=== PATIENT | female | born 1980 | race Caucasian/White ===

== ENCOUNTER 2017-04-21 10:41 | Inpatient (IN) | payer BC ==
[~2017-04-21] VITALS: Ht 172.7 cm; Wt 87.7 kg
[2017-05-07] MEDS ORDERED: PRENATAL (17:11)
[2017-05-28] VITALS (18 sets, daily range): BP systolic 96–130; BP diastolic 52–77; PULSE 80–115; TEMP 98.4–99
[2017-05-28] MEDS ORDERED: GARLIC100 MG PO (12:06)
[2017-05-28] MEDS ORDERED: OSCAL 500 TAB500 MG (12:07)
[2017-05-28] MEDS ORDERED: OMEGA-3 1000 MG1 CAP PO (12:07)
[2017-05-28 12:11] LABS: BASO % 0.2 % (0.0-2.0); EOS % 0.1 % (0-4.0); GRAN # 12.6 (1.4-6.5); GRAN % 81.5 % (42.2-75.2); HEMATOCRIT 40.2 % (37.0-47.0); HEMOGLOBIN 13.6 g/dl (12.5-16.0); LYMPH # 1.5 (1.2-3.4); LYMPH % 9.5 % (20.0-51.0); MEAN CELL VOLUME 91 fl (80.0-100.0); MEAN CORPUSCULAR HEMOGLOBIN 31 pg (27.0-31.0); MEAN CORPUSCULAR HGB CONC 34 g/dl (33.0-37.0); MEAN PLATELET VOLUME 11.2 fl (7.4-10.4); MONO # 1.3 (0.1-0.6); MONO % 8.2 % (1.7-9.3); PLATELET COUNT 179 K/mm3 (130-400); RED BLOOD COUNT 4.41 M/mm3 (4.10-5.30); WHITE BLOOD COUNT 15.4 K/mm3 (4.8-10.8)
[2017-05-29 03:00] VITALS: BP 125/58; PULSE 90; TEMP 98.6
[2017-05-29] MEDS ORDERED: IBU600 MG PO (07:11)
[2017-05-29 07:14] LABS: HEMATOCRIT 31.9 % (37.0-47.0); HEMOGLOBIN 10.8 g/dl (12.5-16.0)
[2017-05-29 08:11] VITALS: BP 105/56; PULSE 100; TEMP 97.6
[2017-05-29 15:00] VITALS: BP 90/66; PULSE 90; TEMP 97.6
[2017-05-29 16:15] VITALS: BP 118/73; PULSE 98; TEMP 98
[2017-05-29 20:30] VITALS: BP 107/68; PULSE 103; TEMP 98.3
[2017-05-30 08:00] VITALS: BP 102/63; PULSE 90; TEMP 98.3
== END 2017-05-30 15:30 | disposition home or self-care (01) | DRG 775 ==
LOC: LDR 05-28 11:26 → OB 05-28 11:32 → LDR 05-28 11:32 → OB 05-28 21:15 → LDR 06-02 10:41
PROVIDERS: Obstetrics & Gynecology
PROC: 10E0XZZ Delivery of Products of Conception, External Approach (ICD-10-PCS; principal; 2017-05-28)
PROC: 0KQM0ZZ Repair Perineum Muscle, Open Approach (ICD-10-PCS; 2017-05-28)
DX: O70.1 Second degree perineal laceration during delivery (principal); Z37.0 Single live birth; Z3A.39 39 weeks gestation of pregnancy
CPT/HCPCS: J2590

== ENCOUNTER 2017-05-07 16:45 | Outpatient (CLI) | payer BC ==
[~2017-05-07] VITALS: Ht 172.7 cm; Wt 83.9 kg
[2017-05-07] MEDS ORDERED: PRENATAL (17:11)
== END 2017-05-07 19:00 | disposition home or self-care (01) ==
LOC: LDRO 16:45 → LDR 16:45 → LDRO 17:00 → LDR 17:00 → EDSTATUS 18:41 → LDR 19:00
DX: O76 Abnormality in fetal heart rate and rhythm complicating labor and delivery (principal); Z3A.36 36 weeks gestation of pregnancy
CPT/HCPCS: OP

== ENCOUNTER 2017-06-01 11:56 | Emergency (ER) | payer BC ==
[~2017-06-01] VITALS: Ht 172.7 cm; Wt 80.0 kg
[~2017-06-01 11:56] MED LIST: GARLIC100 MG PO; IBU600 MG PO; OMEGA-3 1000 MG1 CAP PO; OSCAL 500 TAB500 MG; PRENATAL
[2017-06-01 12:05] VITALS: TEMP 99
[2017-06-01 12:58] LABS: BASO % 0.3 % (0.0-2.0); EOS # 0.2 (0.0-0.7); EOS % 1.6 % (0-4.0); GRAN # 7.8 (1.4-6.5); GRAN % 74.3 % (42.2-75.2); HEMATOCRIT 35.7 % (37.0-47.0); HEMOGLOBIN 11.8 g/dl (12.5-16.0); LYMPH # 1.7 (1.2-3.4); LYMPH % 15.9 % (20.0-51.0); MEAN CELL VOLUME 93 fl (80.0-100.0); MEAN CORPUSCULAR HEMOGLOBIN 31 pg (27.0-31.0); MEAN CORPUSCULAR HGB CONC 33 g/dl (33.0-37.0); MEAN PLATELET VOLUME 10.5 fl (7.4-10.4); MONO # 0.7 (0.1-0.6); MONO % 6.9 % (1.7-9.3); PLATELET COUNT 224 K/mm3 (130-400); RED BLOOD COUNT 3.85 M/mm3 (4.10-5.30); WHITE BLOOD COUNT 10.5 K/mm3 (4.8-10.8)
[2017-06-01 13:51] VITALS: BP 121/81; PULSE 95
[2017-06-01 14:06] LABS: COLLECTION METHOD CLEAN CATCH
[2017-06-01 14:14] LABS: MUCOUS Present /lpf; PH 7 (5-8); SQUAMOUS EPITHELIAL 0-2 /hpf; URINE APPEARANCE Clear; URINE BACTERIA Rare /hpf; URINE BILIRUBIN Negative (NEGATIVE); URINE BLOOD 2+ (NEGATIVE); URINE COLOR Straw; URINE GLUCOSE Negative (NEGATIVE); URINE KETONE Negative (NEGATIVE); URINE LEUKOCYTE ESTERASE 2+ (NEGATIVE); URINE PROTEIN(semi-quant) Negative (NEGATIVE); URINE UROBILINOGEN Negative (NEGATIVE)
[2017-06-01] MEDS ORDERED: CEFTIN500 MG PO (14:51)
== END 2017-06-01 15:05 | disposition home or self-care (01) ==
LOC: COL.ER 11:56
PROVIDERS: Emergency Medicine
DX: M79.661 Pain in right lower leg (principal); X58.XXXA Exposure to other specified factors, initial encounter

== ENCOUNTER → 2017-06-11 | Outpatient (CLI) | payer BC ==
[~2017-06-11] MED LIST changes: +CEFTIN500 MG PO
== END ==
LOC: LAC 13:30
DX: Z39.1 Encounter for care and examination of lactating mother (principal); Z71.89 Other specified counseling

== ENCOUNTER → 2017-06-17 | Outpatient (CLI) | payer BC | LOC: LAC 10:57 | DX: Z39.1 Encounter for care and examination of lactating mother (principal); Z71.89 Other specified counseling ==

== ENCOUNTER → 2017-06-19 | Outpatient (CLI) | payer BC | LOC: LAC 11:00 | DX: Z39.1 Encounter for care and examination of lactating mother (principal); Z71.89 Other specified counseling ==

== ENCOUNTER → 2017-06-24 | Outpatient (CLI) | payer BC | LOC: OLC 10:08 | DX: Z39.1 Encounter for care and examination of lactating mother (principal); Z71.89 Other specified counseling ==

== ENCOUNTER → 2017-07-18 | Outpatient (CLI) | payer BC | LOC: LAC 12:58 | DX: Z39.1 Encounter for care and examination of lactating mother (principal); Z71.89 Other specified counseling ==

== ENCOUNTER → 2018-11-27 | Outpatient (CLI) | payer BC | LOC: MC.RAD 07:29 | DX: N63.41 Unspecified lump in right breast, subareolar (principal) ==

== ENCOUNTER → 2019-11-08 | Outpatient (CLI) | payer BC | LOC: MC.RAD 09-14 16:00 | DX: Z12.31 Encounter for screening mammogram for malignant neoplasm of breast (principal); R92.2 Inconclusive mammogram ==

== ENCOUNTER → 2019-11-11 | Outpatient (CLI) | payer BC | LOC: MC.RAD 14:15 | DX: Z12.39 Encounter for other screening for malignant neoplasm of breast (principal); R92.2 Inconclusive mammogram ==

== ENCOUNTER → 2021-07-10 | Outpatient (CLI) | payer BC | LOC: MC.RAD 08:15 | DX: Z12.31 Encounter for screening mammogram for malignant neoplasm of breast (principal) ==